=== PATIENT | male | born 1950 | race African-American/Black ===

== ENCOUNTER 2017-11-14 09:32 | Outpatient (CLI) | payer MEDICARE ==
--- NOTE | 2017-11-14 12:44 | CT ---
CHEST CT WITHOUT CONTRAST: Date: 11/14/17 COMPARISON: 10/02/16, 08/09/15. HISTORY: Follow-up lung cancer. Left upper lobe nodule follow-up. Patient has undergone chemotherapy and radia tion therapy in 2009. TECHNIQUE: Noncontrast chest CT is performed in the axial plane. Reformatted images are submitted for interpreta tion. FINDINGS: Limited evaluation of the mediastinum due to lack of IV contrast. Coronary artery calcifications are identified. Atherosclerosis of aorta is noted. Normal heart size. Trachea and central bronchi are patent. 4.0 mm nodule in the lateral right upper lobe. 4.0 mm nodule in the anterior middle lobe. Scar/atelec tasis in the right lower lobe. Persistent consolidation with air bronchograms in the left lung apex. There is intrinsic hyperdensity , unchanged. Area of hyperdensity likely represents calcification of the apical pleura and measures 3 .0 x 2.1 cm. Subpleural lymph node adjacent to the left major fissure is noted, measuring 3.0 mm. Visualized upper solid organs are unremarkable. Stable degenerative changes of the spine. IMPRESSION: No significant interval change. Stable post-treatment changes in the left upper lobe. POS: ALEX
== END 2017-11-14 09:33 | disposition home or self-care (01) ==
LOC: CT 09:32
PROVIDERS: ATTEND Radiology Radiation Oncology
DX: C34.12 Malignant neoplasm of upper lobe, left bronchus or lung (principal); Z92.21 Personal history of antineoplastic chemotherapy
CPT/HCPCS: 71250

== ENCOUNTER 2018-09-03 08:08 | Outpatient (CLI) | payer MEDICARE ==
[2018-09-03] MEDS ORDERED: Iopamidol 370 76% 100 ML VIAL ONE (09:00)
[2018-09-03 09:19] LABS: Estimated GFR-MDRD - POC Greater than 90
--- NOTE | 2018-09-03 11:47 | MRI ---
MRI BRAIN WITH AND WITHOUT CONTRAST: DATE: 09/03/18 HISTORY: 68-year-old male with history of brain metastasis from lung cancer. COMPARISON: 07/20/16. TECHNIQUE: Multiple sequences obtained in axial, sagittal, and coronal planes; pre and post IV injection of gado linium-based contrast agent: 12 mL MultiHance. FINDINGS: Again noted are the right posterior parietal craniotomy changes, deep to which there is a right poste rior parietal region of encephalomalacia and gliosis, with the inferior portion of the lesion close t o the parietooccipital fissure. There is no abnormal nodular enhancement in the region of encephaloma lacia and gliosis. There is no new abnormally enhancing metastatic tumor intracranial mass, either in the intra-axial or extra-axial spaces. Ventricles are normal in size and configuration. No mass effe ct, midline shift, recent hemorrhage, restricted diffusion, or extra-axial fluid collection. Again noted is the multichambered, mixed signal intensity chronic mass expanding the right ethmoid si nus, chronically displacing the right lamina papyracea to the right, encroaching upon, and distorting the right orbit and right nasal cavity. This degree of mass effect upon the right orbit has not sign ificantly changed since a reference sinus CT of 11/05/12 from [facility]. There is multilocula sis thick rim enhancement involving this mass. There is mild to moderate mucosal enhancement of the s phenoid sinus. No invasion of the cavernous sinuses. IMPRESSION: 1. Status post neoplastic tumor resection (presumably metastasis) from right parietal lobe; with enc ephalomalacia and gliosis, unchanged since 07/20/16. 2. No evidence of recurrent or new metastatic lesion intracranially. 3. Very slowly growing, expansile mass centered in the right ethmoid sinus, causing chronic mass eff ect upon the adjacent right orbit, consistent with sinonasal polyposis. SAMANTHA Diop POS: [facility]
--- NOTE | 2018-09-03 15:47 | CT ---
CT OF THE CHEST WITH CONTRAST: 09/03/18 COMPARISON: 10/02/16, 08/09/15, 12/12/13. TECHNIQUE: Multiple contiguous axial images were obtained in CT of the chest with contrast. Coronal reformats we re performed. FINDINGS: There is collapse of the left upper lobe with central high density. This is grossly stable compared t o the prior examination. There is a new right hilar mass measuring 2.9 cm in greatest dimension. There is mucus seen within ob structed bronchi to the right lower lobe. There are areas of air space opacity in the right lower lob e which may represent focal infiltrates or metastatic disease. These are new compared to the prior ex amination. The previously seen scattered tiny areas of nodularity are unchanged but difficult to see in the right lung given the findings in the right hilar region extending into the right lower lobe. T here are also new areas of nodularity in the right middle lobe extending from the hilum with increase d interstitial lung markings in the right middle lobe. The heart is normal in size. No left hilar adenopathy is seen. No enlarged mediastinal lymph nodes ar e present. Degenerative changes are seen in the spine. The chest wall soft tissues are unremarkable. There are s mall hypodensities in the left kidney which are too small to characterize but likely represents cyst s. The other visualized subdiaphragmatic structures are unremarkable. IMPRESSION: There is a new right hilar mass appear to cause obstruction of the bronchi to the right middle and lo wer lobes which result in mucus filled bronchi in the right lower lobe. There are areas of air space opacity in the right lower lobe and increased interstitial markings in the right middle lobe which ar e concerning for spread of malignancy. POS: C
== END 2018-09-03 08:09 | disposition home or self-care (01) ==
LOC: SCSMRI 08:08
PROVIDERS: ATTEND Radiology Radiation Oncology
DX: C34.12 Malignant neoplasm of upper lobe, left bronchus or lung (principal); C79.31 Secondary malignant neoplasm of brain; R91.8 Other nonspecific abnormal finding of lung field; J34.89 Other specified disorders of nose and nasal sinuses; G93.89 Other specified disorders of brain
CPT/HCPCS: 70553; 71260; 82565; Q9967

== ENCOUNTER 2018-09-18 07:00 | Day surgery (SDC) | payer MEDICARE ==
--- NOTE | 2018-09-17 14:12 | HP ---
HISTORY OF PRESENT ILLNESS: A 68-year-old gentleman, who is referred by Dr. Luke Romeo for bronchoscopy. He has known history of metastatic adenocarcinoma diagnosed in 2009 when he was found to have a mass. He underwent a craniotomy and excision, which revealed adenocarcinoma. He has since then received chemoradiation and had been followed exclusively by Oncology. He presented with cough and now a new right lung mass. He said he has lost weight, about 70 pounds, but no fever or chills. In fact, he was still smoking until about 7 months ago. PAST MEDICAL HISTORY: Metastatic lung cancer diagnosed initially in 2009, nasal allergies, chronic sinusitis, right ethmoid mass_, diabetes, hypertension, arthritis, seizures. PAST SURGICAL HISTORY: Appendix, brain tumor removed in 2009, cyst on the scalp. HABITS: Still smoking1 pack a day. Alcohol, none. CHRONIC MEDICATIONS: Include, 1. Lisinopril 20. 2. Atorvastatin 20. 3. Dilantin 100 three times a day. SOCIAL AND FAMILY HISTORY: Unremarkable. He worked for the [employer]. ALLERGIES: NONE. REVIEW OF SYSTEMS: Ten-point negative. PHYSICAL EXAMINATION: GENERAL: He is in no acute distress in the office. He looks cachectic. VITAL SIGNS: Saturations 97%, pulse 80, respiratory rate 18, and blood pressure 110/80. EXTREMITIES: Finger clubbing. CHEST: Decreased breath sounds. No wheezing. CARDIAC: Normal S1 and S2. No gallops. ABDOMEN: Soft. IMAGING STUDIES: His CT scan on 09/03/2018 shows a new right hilar mass causing some obstruction in the right lower lobe area. There is also some airspace disease in the right lower lung, for which he was given some antibiotics. Additionally , the area in the left lung appears to be unchanged. IMPRESSION: New right lung mass, metastatic carcinoma versus new primary; tobacco abuse; seizure disorder; status post craniotomy. PLAN: Outpatient bronchoscopy and biopsy will be performed. Further recommendation after that. Job ID: [id number] [facility]
[2018-09-17 14:18] VITALS: BMI 17.6
[2018-09-18] MEDS ORDERED: Lidocaine 4% PF 5 ML AMP NEB SCH (08:00)
[2018-09-18] MEDS ORDERED: Sodium Chloride 0.9% 1,000 ML IV SCH (08:00)
[2018-09-18] MEDS ORDERED: Lidocaine 1% (PF) 30 ML VIAL ONE (08:19)
[2018-09-18] MEDS ORDERED: Fentanyl 100 MCG/2 ML VIAL ONE (08:19)
[2018-09-18] MEDS ORDERED: Midazolam HCl 2 mg/2 ml Vial ONE (08:19)
[2018-09-18] MEDS ORDERED: Benzocaine 20% Spray 60 ML CAN ONE (08:25)
[2018-09-18] MEDS ORDERED: EPINEPHrine 1 MG/10 ML Abboject SYRINGE ONE ×2 (10:09→12:12)
--- NOTE | 2018-09-18 11:20 | OP ---
DATE OF PROCEDURE: 09/18/2018 PROCEDURE PERFORMED: Bronchoscopy with biopsy. INDICATION: Right lung mass. POSTBRONCHOSCOPY DIAGNOSES: 1. The entire right lung, right upper lobe bronchus, right lower lobe bronchus, bronchus intermedius, and all the segments and subsegments were occluded with nodular friable mucosa, very friable and very bloody. 2. It appears the bronchogenic carcinoma is involving the entire lung. DESCRIPTION OF PROCEDURE: After informed consent, the patient received 4 mL of 4% lidocaine with DuoNeb. During the procedure, he received 1 of Versed and 50 of fentanyl. The flexible B1 Olympus bronchoscope was passed via the nostril. Pharynx, hypopharynx, and vocal cords were visualized, which were unremarkable. Entering the trachea, the reza appeared to be relatively sharp. Right lung inspected initially. Right mainstem bronchus, right lower lobe bronchus, right bronchus intermedius were markedly occluded with extensive friable nodular mucosa. I was able to visualize the right upper lobe segment, but otherwise the basilar segments including the middle lobe and right lower lobe basilar segments were not visualized since they were occluded with extensive nodular friable mucosa. There was blood profusely to touch. The entire area was lavaged with normal saline. Following this, several mL of 1:10,000 epinephrine instilled. Thereafter, multiple biopsies obtained from the right middle lobe orifice, mucosa as well as the right lower lobe basilar segment multiple orifices, nodular friable mucosa. A total of at least 15 mL of 1:10,000 epinephrine instilled to control the bleeding. The left lung was inspected subsequently, which showed surprisingly the left upper lung to be unremarkable. No obvious endobronchial disease was seen. There was some narrowing of the upper lobe segments. Left lobe was unremarkable. The patient otherwise tolerated the procedure well. The washings were sent for cytology. Biopsy was sent for histopathology only. BRIEF DISCHARGE NOTE: The patient tolerated the procedure well. Results will be available to the patient and family. Further recommendation as above. Job ID: [id number]
--- NOTE | 2018-09-22 08:38 | EKG ---
Test Reason : Blood Pressure : / mmHG Vent. Rate : 093 BPM Atrial Rate : 093 BPM P-R Int : 156 ms QRS Dur : 080 ms QT Int : 340 ms P-R-T Axes : 080 076 060 degrees QTc Int : 422 ms Normal sinus rhythm Minimal voltage criteria for LVH, may be normal variant Borderline ECG When compared with ECG of 12-DEC-2013 17:47, No significant change was found Confirmed by DR. Kathya CERVANTES ([id number]) on 09/22/2018 8:37:49 AM Referred By: PAMELA Confirmed By:DR. Kathya CERVANTES
== END 2018-09-18 12:15 | disposition home or self-care (01) ==
LOC: SDC 07:00
PROVIDERS: ATTEND Internal Medicine Pulmonary Disease
PROC: 0BB38ZX Excision of Right Main Bronchus, Via Natural or Artificial Opening Endoscopic, Diagnostic (ICD-10-PCS; principal; 2018-09-18)
DX: C34.91 Malignant neoplasm of unspecified part of right bronchus or lung (principal); I10 Essential (primary) hypertension; E11.9 Type 2 diabetes mellitus without complications; M19.90 Unspecified osteoarthritis, unspecified site; Z87.891 Personal history of nicotine dependence; Z79.899 Other long term (current) drug therapy
CPT/HCPCS: 88112; 88305; 88313; 88341; 88342; 93005; 93010; 94640; 99152; 99153; J0171; J2001; J2250; J3010

== ENCOUNTER 2018-10-02 11:12 | Outpatient (CLI) | payer MEDICARE ==
--- NOTE | 2018-10-02 14:13 | PET ---
Radionucleotide PET scan with CT attenuation correction HISTORY: Right lung cancer. Metastatic disease. Restaging. FINDINGS: Physiologic uptake of radiotracer throughout the enteric system and along each urinary trac t. At the right hilum, a lobular soft tissue density mass shows a maximum SUV of 13.0. A lymph node at t he right suprahilar level shows a maximum SUV of 12.2. A right posterior infrahilar lymph node shows maximum SUV of 6.7. Subcarinal lymph node shows maximum SUV of 3.9. The nodule within the lateral segment of the right middle lobe is now approximately 1.6 cm diameter a nd shows a maximum SUV of 8.2 IMPRESSION: Hypermetabolic right hilar mass and right middle lobe mass with spread to mediastinal lym ph nodes as detailed above..
== END 2018-10-02 11:13 | disposition home or self-care (01) ==
LOC: PET 11:12
PROVIDERS: ATTEND Radiology Radiation Oncology
DX: C34.81 Malignant neoplasm of overlapping sites of right bronchus and lung (principal); R91.8 Other nonspecific abnormal finding of lung field
CPT/HCPCS: 78815; A9552

== ENCOUNTER 2019-03-03 09:20 | Outpatient (CLI) | payer MEDICARE ==
[2019-03-03 09:52] LABS: Estimated GFR-MDRD - POC Greater than 90
--- NOTE | 2019-03-03 11:00 | CT ---
EXAM: CT Chest W Con PROVIDED CLINICAL HISTORY: Lung cancer COMPARISON: CT of 09/03/2018, PET/CT 10/02/2018 FINDINGS: Appearance of the left lung apex is unchanged with respect to multiple prior examinations. Heart, per icardium and great vessels appear stable. Interval reduction in the bulk of the right hilar mass previously described. There is development of postobstructive atelectasis involving the right middle lobe with fluid-filled right middle lobe bronchi demonstrated. The fluid density previously demonstrated within right lower lobe bronchi is no longer apparent. Interval development of multiple new noncalcified nodules involving the right upper lobe and right lo wer lobe. The largest of these are located in the superior segment of the right lower lobe, the largest measuring about 2 cm. Interval development of noncalcified nodule measuring at least 6 mm inv olving the left upper lobe. There is a small amount of right pleural fluid. There is no evidence for thoracic lymph node enlargement. Interval development of several hypodense foci involving the right hepatic lobe, largest of which katharine sures about 1.5 cm. The solid abdominal organs demonstrate an otherwise unremarkable CT appearance. There is no bowel dilatation, inflammatory fat stranding, free fluid or lymph node enlargement appare nt within the abdomen. Conspicuous vascular calcifications are seen. The osseous structures demonstrate no concerning lytic or blastic lesions. IMPRESSION: 1. Interval reduction in the bulk of the right hilar mass. 2. Postobstructive change involving the right middle lobe. 3. Interval development of bilateral pulmonary nodules compatible with metastatic disease. 4. Small right pleural effusion. 5. Development of hypodensities involving the right hepatic lobe compatible with metastatic disease.
[2019-03-03] MEDS ORDERED: Iopamidol 370 76% 100 ML VIAL ONE (16:13)
== END 2019-03-03 09:21 | disposition home or self-care (01) ==
LOC: CT 09:20
PROVIDERS: ATTEND Internal Medicine Medical Oncology
DX: C34.81 Malignant neoplasm of overlapping sites of right bronchus and lung (principal); J90 Pleural effusion, not elsewhere classified; K76.89 Other specified diseases of liver; R91.8 Other nonspecific abnormal finding of lung field
CPT/HCPCS: 71260; 74160; 82565; Q9967

== ENCOUNTER 2019-05-19 07:30 | Inpatient (IN) | payer MEDICARE ==
--- NOTE | 2019-05-19 08:39 | RAD ---
EXAM: CHEST ONE VIEW HISTORY: Productive cough for 3 days. History of lung cancer. Currently on chemotherapy. COMPARISON: CT thorax on 03/03/2019 FINDINGS: The right hilar/infrahilar masslike opacity is again seen with overall similar appearance to the scou t view of the chest on CT thorax on 03/03/2019. The area of opacification in the left lung apex also persists. The scattered pulmonary nodules seen on CT of thorax are not well delineated on this exam. Pulmonary vasculature is within normal limits. No pleural effusion is identified. Remote posterior right-sided rib fractures are again seen. No other interval change. IMPRESSION: 1. Right hilar/infrahilar masslike opacity also seen on prior CT thorax and related to patient's know n neoplastic process. 2. Stable opacity left lung apex.
[2019-05-19 09:30] LABS: ALT (SGPT) 21 U/L (8-55); AST (SGOT) 34 U/L (5-34); Albumin 3.8 g/dL (3.4-4.8); Alkaline Phosphatase 109 U/L (40-110); Anion Gap 19 mmol/L (10-20); BUN (Urea Nitrogen) 26 mg/dL (8.4-25.7); Bilirubin, Total 0.5 mg/dL (0.2-1.2); Calc. Creatinine Clearance 0 mL/min (70-130); Calcium 9.2 mg/dL (7.8-10.44); Carbon Dioxide 17 mmol/L (23-31); Chloride 106 mmol/L (98-107); Estimated GFR-MDRD Greater than 90; Globulin 4.1 g/dL (2.4-3.5); Glucose 98 mg/dL (80-115); Potassium 4.7 mmol/L (3.5-5.1); Protein, Total 7.9 g/dL (5.8-8.1); Sodium 137 mmol/L (136-145)
--- NOTE | 2019-05-19 09:56 | CT ---
CT PULMONARY ANGIOGRAM WITH IV CONTRAST AND 3D POSTPROCESSING: Date: 05/19/2019 HISTORY: Cough. Lung cancer. Patient has been on chemotherapy for 2 weeks. FINDINGS: Comparison made with CT scan of 03/03/2019. There is good contrast opacification of the pulmonary arterial vasculature without filling defects to suggest pulmonary embolism. There are vascular calcifications without evidence of aneurysmal dilatat ion of the thoracic aorta. No pericardial or left pleural effusion is seen. A small right pleural eff usion is again seen. There has been interval development of patchy consolidation in the right lower l obe with probable small area of cavitation. Atelectatic change in the right middle lobe and parenchym al changes in the left upper lobe are stable. There has been interval increase in size of the 15 mm lesion in the right lobe of the liver which cur rently measures 2 cm. There are degenerative changes in the spine. There is a small right pneumothorax which is new since the last exam. The nodular densities in the ri ght lung are stable. IMPRESSION: 1. No CT evidence of pulmonary embolism. Please see above discussion. 2. Small right pneumothorax. 3. New areas of consolidation in the right lower lobe since 03/03/2019. Discussed over the phone with ER physician, Dr. Jesi Rojas, at 0946 hours. CODE CR. POS: MZJenna
[2019-05-19] MEDS ORDERED: Vancomycin HCl 1.25 GM in Sodium Chloride 0.9% 250 ML 250 ML IVPB SCH (10:00)
[2019-05-19 10:26] LABS: Hemoglobin 10.3 g/dL (14.0-18.0); Mean Corpuscular HGB CONC 33.2 g/dL (32.0-36.0); Mean Corpuscular Hemoglobin 31.5 pg (27.0-31.0); Mean Corpuscular Volume 94.9 fL (78.0-98.0); Mean Platelet Volume 9.6 fL (7.4-10.4); Platelet Count 51 thou/uL (130-400); RBC Distribution Width 15.8 % (11.5-14.5); Red Blood Cell (RBC) Count 3.26 mill/uL (4.70-6.10); White Blood Cell (WBC) Count 3.7 thou/uL (4.8-10.8)
[2019-05-19 10:28] LABS: #Lymphocytes 0.2 thou/uL (1.20-3.40); #Monocytes 0.1 thou/uL (0.11-0.59); #Neutrophils 3.3 thou/uL (1.40-6.50); %Eosinophils 0.3 % (0.0-10.0); %Lymphocytes 5.8 % (21.0-51.0); %Monocytes 2.6 % (0.0-10.0); %Neutrophils 91.2 % (42.0-75.0); Platelet Morphology Comment Appears Decreased
[2019-05-19] MEDS ORDERED: Cefepime 2 GM VIAL ONE (10:32)
--- NOTE | 2019-05-19 12:03 | PDOC.FPRHP ---
- History of Present Illness Chief Complaint: Cough History of Present Illness: 68yo male with PMH of squamous cell lung cancer on chemo presents with cough and is admitted for severe sepsis 2/2 pneumonia. He reports 2 day hx productive cough. Denies fever, congestion. Reports decreased PO intake, urine output, dizziness. Reports falling last night after feeling dizzy. Did not hit his head. Waited until the morning to call EMS. Notes he last received chemo with Dr. Coleman last week. Next visit scheduled . Lives at home with . Uses walker sometimes. Does not use services. Patient is poor historian. No family members present. ED Course: Initially tachycardic, tachypneic. Flu swab. Received Vanc, Levaquin, Cefepime, 2L NS - Allergies/Adverse Reactions Allergies Allergy/AdvReac Type Severity Reaction Status Date / Time No Known Allergies Allergy Verified 05/16/19 23:15 - Home Medications Medication Instructions Recorded Confirmed Type Phenytoin Sodium Extended 100 mg PO BID 12/12/13 05/19/19 History [Dilantin] Atorvastatin Calcium [Lipitor] 20 mg PO HS 09/17/18 05/19/19 History Lisinopril 10 mg PO QAM 05/19/19 05/19/19 History - History PMHx: Squamous Cell Lung cancer, HTN, Seizure PSHx: Appendectomy, lung biopsy, craniotomy 2009 FHx: Noncontributory Social: Quit smoking 06/2018. Denies alcohol or drug use. - Review of Systems General: reports: weight/appetite/sleep changes, fatigue. denies: fever/chills Eyes: denies: eye pain, vision changes ENT: reports: nasal congestion, rhinorrhea Respiratory: reports: cough, congestion. denies: shortness of breath Cardiovascular: denies: chest pain, edema Gastrointestinal: reports: diarrhea. denies: nausea, vomiting, abdominal pain Genitourinary: reports: other (decreased urination) Skin: denies: rashes, lesions Neurological: denies: seizure, weakness - Vital signs BP: 114/77 HR: 111 RR: 20 Tmax: 97.8 Pox: 100% on 1L Wt: 59kg - Physical Exam Constitutional: NAD, awake, alert and oriented, well developed HEENT: normocephalic and atraumatic Abdomen: soft, non-tender, bowel sounds present Musculoskeletal: normal structure, normal tone Neurological: no focal deficit Skin: no rash/lesions, good turgor Psychiatric: normal mood and affect, good judgment and insight, intact recent and remote memory, other (Difficult to understand) FMR H&P: Results - Labs Result Diagrams: 05/19/19 09:59 05/19/19 08:59 Lab results: WBC 3.7 thou/uL (4.8-10.8) L 05/19/19 09:59 Hgb 10.3 g/dL (14.0-18.0) L 05/19/19 09:59 Hct 30.9 % (42.0-52.0) L 05/19/19 09:59 MCV 94.9 fL (78.0-98.0) 05/19/19 09:59 Plt Count 51 thou/uL (130-400) L 05/19/19 09:59 Neutrophils % 91.2 % (42.0-75.0) H 05/19/19 09:59 Sodium 137 mmol/L (136-145) 05/19/19 08:59 Potassium 4.7 mmol/L (3.5-5.1) 05/19/19 08:59 Chloride 106 mmol/L (98-107) 05/19/19 08:59 Carbon Dioxide 17 mmol/L (23-31) L 05/19/19 08:59 BUN 26 mg/dL (8.4-25.7) H 05/19/19 08:59 Creatinine 0.82 mg/dL (0.7-1.3) 05/19/19 08:59 Glucose 98 mg/dL (80-115) 05/19/19 08:59 Lactic Acid 2.3 mmol/L (0.5-2.2) H 05/19/19 08:59 Calcium 9.2 mg/dL (7.8-10.44) 05/19/19 08:59 Total Bilirubin 0.5 mg/dL (0.2-1.2) 05/19/19 08:59 AST 34 U/L (5-34) 05/19/19 08:59 ALT 21 U/L (8-55) 05/19/19 08:59 Alkaline Phosphatase 109 U/L (40-110) 05/19/19 08:59 Serum Total Protein 7.9 g/dL (5.8-8.1) 05/19/19 08:59 Albumin 3.8 g/dL (3.4-4.8) 05/19/19 08:59 - Radiology Interpretation CT scan - chest Status: image reviewed by me, report reviewed by me Additional comment: Small right pneumothorax Increased Chest x-ray Status: image reviewed by me, report reviewed by me FMR H&P: A/P - Plan 68 yo M with PMH lung cancer on chemo presents with 2 days of cough, weakness and is admitted for CAP. Severe sepsis 2/2 PNA - Tachypnea, tachycardia, WBC 3.7, Lactic 2.3 on initial presentation. Afebrile. - No travel or sick contacts. Covid not suspected by ED and not tested. - Received Cefepime, Vanc/Zosyn, 2L NS in the ED - Flu negative - CT showed new RLL consolidation - Continue IVF - Continue vanc and cefepime (05/18) Thrombocytopenia - platelet 51, this is not present on prior labs but last to compare in chart from 11/13. - 2/2 sepsis vs malignancy Chronic normocytic anemia - Hgb 10.3, continue to monitor, likely 2/2 chronic disease Dilantin therapy with presumed hx of seizures - difficult to obtain hx from patient - will check dilantin level HTN - Hold home lisinopril today Hx of Lung Cancer - Biopsy [place] [address] Powers showed Squamous cell carcinoma - Hx of metastatic brain cancer- adenocarcinoma, reported primary cancer was lung per prior H&P - will notify [place] of patient's inpatient status Hx DM in chart years ago, patient denies Code Status: FULL DVT ppx: SCDs Diet: CC PCP: [facility] Dispo: admit to medical floor, inpatient. Expected stay >48hrs. Addendum - Attending - Attending Attestation Date/Time: 05/19/192128 I personally evaluated the patient and discussed the management with Dr. Montenegro I agree with the History, Examination, Assessment and Plan documented above with any addition or exceptions noted below- 68 yo male with h/o SCCA of lung stage IV presented with cough and increased SOB for last 2 days. Denies any fever. Mildly increased sputum production. Denies any hemoptysis. PMH/PSH/Meds/ SH reviewed and agree with residents documentation. Afebrile VSS Exam repeated by me and agree with residents findings. CT chest- RLL infiltrate A/ P: 1) Severe sepsis secondary RLL pneumonia- continue current abxn cultures pending. 2 ) SCCA of lung- oncology notified of patients admission, 3) Cachexia/protein calorie malnutrition - plan for nutrition consult and start ensure supplements.
[2019-05-19 13:14] LABS: Lactic Acid 1.8 mmol/L (0.5-2.2)
[2019-05-19] MEDS ORDERED: Acetaminophen 325 MG TAB PO PRN (14:44)
[2019-05-19] MEDS ORDERED: Ondansetron PF 4 MG/2 ML Vial IVP PRN (14:44)
[2019-05-19] MEDS ORDERED: Ondansetron ODT 4 MG TAB PO PRN (14:44)
[2019-05-19 15:00] VITALS: BMI 14.5
[2019-05-19] MEDS ORDERED: Iopamidol 370 76% 100 ML VIAL ONE (15:36)
[2019-05-19] MEDS: Lactated Ringer's 1,000 ML IV SCH (15:48)
[2019-05-19] MEDS: Cefepime 2 GM in Sodium Chloride 0.9% 100 ML IVPB SCH (17:04)
--- NOTE | 2019-05-19 17:38 | CON ---
DATE OF CONSULTATION: REASON FOR CONSULTATION: Squamous cell lung cancer. HISTORY OF PRESENT ILLNESS: Mr. Alexis is a pleasant 68-year-old gentleman with squamous cell lung cancer of the right upper lobe, right lower lobe, and bronchus intermedius. He was diagnosed in August of 2018. He underwent treatment with radiation as he was stage IIA at diagnosis. Unfortunately, in February of 2019, he was diagnosed with progressive disease with new pulmonary nodules and liver masses. He was started on chemotherapy and immunotherapy. He completed cycle 4 of carboplatin, Taxol, and Keytruda on May 10. He was struggling with neutropenia throughout treatment. He has also been significantly anemic with his last hemoglobin of 8.2. Over the last several days, he has been having worsening cough and dizziness, so he presented to the emergency room for evaluation. He underwent a CT angio of the chest, which was negative for pulmonary emboli. There was a small right pneumothorax and a new area of consolidation in the right lower lobe consistent with pneumonia. He was admitted for treatment. He was started on IV fluids and vancomycin and cefepime. His white blood cells on arrival were 3.7 with an ANC of 3.3, his hemoglobin was 10.3, and his platelet count was 51,000. He denies any hemoptysis or blood in his urine or stool. He states he is feeling better since arrival and has no complaints of shortness of breath at this time. PAST MEDICAL HISTORY: 1. Stage IV squamous cell carcinoma of the lung. 2. 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 3. Diabetes mellitus, type 2. 4. Hypertension. 5. Hyperlipidemia. 6. Arthritis. 7. History of seizures. 8. Chronic sinusitis. PAST SURGICAL HISTORY: 1. Appendectomy. 2. Craniotomy with resection of solitary brain met in 2009. 3. Bronchoscopy. ALLERGIES: NO KNOWN DRUG ALLERGIES. HOME MEDICATIONS: 1. Megace. 2. Atorvastatin. 3. Iron. 4. Lisinopril. 5. Dilantin. 6. Tessalon Perles. FAMILY HISTORY: Father had a history of lung cancer. SOCIAL HISTORY: , lives with his spouse. He is a former smoker. Former alcohol use. No illicit drug use. Worked for the [employer] in the past. REVIEW OF SYSTEMS: A 10-point review of systems is negative except for noted in HPI. PHYSICAL EXAMINATION: VITAL SIGNS: Temperature 97.8, pulse is 97, respiratory rate 18, and blood pressure is 128/81, and he is 97% on 1.5 L nasal cannula. GENERAL: This is a frail male, in no acute distress. HEENT: Normocephalic, atraumatic. Pupils are equal and reactive to light. NECK: Supple. CV: Regular rate and rhythm. LUNGS: He has crackles in his right base. ABDOMEN: Soft and nontender. Bowel sounds are positive. EXTREMITIES: There is no clubbing or cyanosis. SKIN: No rash. HEMATOLOGIC: No petechiae or purpura. NEUROLOGIC: Nonfocal. LABORATORY AND DIAGNOSTIC DATA: Current WBCs 3.7, hemoglobin 10.3, hematocrit 30.9, platelet count 51,000, 91% neutrophils, 5.8% lymphocytes, and ANC is 3.3. Sodium 137, potassium 4.7, chloride 106, CO2 of 17, BUN is 26, creatinine 0.82, lactic acid is 1.8, calcium 9.2, bilirubin 0.5, AST 34, ALT is 21, alkaline phosphatase is 109. Troponin is negative. Serum total protein is 7.9, albumin 3.8, globulin 4.1. Radiology per HPI. ASSESSMENT: 1. Right lower lobe pneumonia. 2. Stage IV squamous cell lung cancer. DISCUSSION: The patient is receiving IV fluids and empiric antibiotics. His home medications have been continued. He has struggled with poor appetite in the past. We would get a dietary consult to assist with dietary choices. He has been pancultured and they are currently pending. His chemotherapy has been completed and now will begin maintenance Keytruda in May. We will follow along with his hospital course. Thank you for the consult. Job ID: [id number]
[2019-05-19] MEDS ORDERED: Vancomycin 1 GM in Premix Bag 1 BAG IVPB SCH (21:00)
[2019-05-19] MEDS: Atorvastatin Calcium 20 MG TAB PO SCH (21:18)
[2019-05-20] MEDS: Lactated Ringer's 1,000 ML IV SCH (02:12)
[2019-05-20] MEDS: Cefepime 2 GM in Sodium Chloride 0.9% 100 ML IVPB SCH ×3 (02:13→17:10)
[2019-05-20 06:08] LABS: #Lymphocytes 0.2 thou/uL (1.20-3.40); #Monocytes 0.2 thou/uL (0.11-0.59); #Neutrophils 1.8 thou/uL (1.40-6.50); %Eosinophils 1.9 % (0.0-10.0); %Lymphocytes 8.3 % (21.0-51.0); %Monocytes 6.9 % (0.0-10.0); %Neutrophils 82.9 % (42.0-75.0); Hemoglobin 9.2 g/dL (14.0-18.0); Mean Corpuscular HGB CONC 32.9 g/dL (32.0-36.0); Mean Corpuscular Hemoglobin 31.1 pg (27.0-31.0); Mean Corpuscular Volume 94.7 fL (78.0-98.0); Mean Platelet Volume 10.2 fL (7.4-10.4); Platelet Count 40 thou/uL (130-400); RBC Distribution Width 15.9 % (11.5-14.5); Red Blood Cell (RBC) Count 2.97 mill/uL (4.70-6.10); White Blood Cell (WBC) Count 2.2 thou/uL (4.8-10.8)
[2019-05-20 06:26] LABS: Anion Gap 12 mmol/L (10-20); BUN (Urea Nitrogen) 16 mg/dL (8.4-25.7); Calc. Creatinine Clearance 73 mL/min (70-130); Carbon Dioxide 19 mmol/L (23-31); Chloride 108 mmol/L (98-107); Estimated GFR-MDRD Greater than 90; Glucose 66 mg/dL (80-115); Potassium 3.9 mmol/L (3.5-5.1); Sodium 135 mmol/L (136-145)
--- NOTE | 2019-05-20 06:57 | PDOC.FM ---
- Subjective Subjective: Mr. Alexis was sleeping comfortably in bed. He denies SOB,difficulty breathing , CP. Says he still hasnt had much appetite. - Objective Vital Signs & Weight: Vital Signs (12 hours) Temp Pulse Resp BP Pulse Ox 05/20/19 04:00 98.2 F 94 20 131/83 95 05/19/19 23:58 97.5 F L 102 H 20 135/76 96 Weight Weight 48.58 kg I&O: 05/18/19 05/19/19 05/20/19 06:59 06:59 06:59 Intake Total 387 Balance 387 Result Diagrams: 05/20/19 05:13 05/20/19 05:13 Phys Exam - Physical Examination Constitutional: NAD (cachectic) Respiratory: wheezing present (mild expiratory) Cardiovascular: RRR, no significant murmur Gastrointestinal: soft (thin), non-tender Musculoskeletal: no edema Neurological: non-focal Psychiatric: normal affect Dx/Plan - Plan Plan: 68 yo M with PMH lung cancer on chemo presents with 2 days of cough, weakness and is admitted for CAP. Severe sepsis 2/2 PNA, improving - Tachypnea, tachycardia, WBC 3.7, Lactic 2.3 on initial presentation. Afebrile. - No travel or sick contacts. Covid not suspected by ED and not tested. - Received Cefepime, Vanc/Zosyn, 2L NS in the ED - Flu negative - CT showed new RLL consolidation - Continue vanc and cefepime (05/18). Blood cx pending. Discontinue IVF. Thrombocytopenia, worsening - platelet 51->40 - 2/2 sepsis vs malignancy Chronic normocytic anemia - Hgb 10.3->9.2, continue to monitor, likely 2/2 chronic disease Leukopenia - WBC 2.2, decreased Dilantin therapy with presumed hx of seizures - dilantin level subtherapeutic. Patient reports taking med once daily. Med restarted twice daily as prescribed. Recheck in 5-7 days (~05/24). HTN - Hold home lisinopril today Hx of Lung Cancer on chemo - Oncology saw patient, consult. Appreciate recommendations Hx DM in chart years ago, patient denies Code Status: FULL DVT ppx: SCDs d/t thrombocytopenia Diet: CC PCP: Cristiano Palma Dispo: PT today, increasing PO intake, continue current management Addendum - Attending - Attending Attestation Date/Time: 05/20/19 5930 I personally evaluated the patient and discussed the management with Dr. Montenegro I agree with the History, Examination, Assessment and Plan documented above with any addition or exceptions noted below - 1) Patient feeling better; still having some coughing and feels like he can't cough up the mucus. Afebrile VSS A/ P: 1) Severe sepsis- improved. 2) CAP - continue current abx. Add nebulizer treatment and mucinex. 2) Metastatic SCCA of lung- appreciate oncology assistance. 3) Cachexia- nutrition consult and supplements.
[2019-05-20] MEDS: Lisinopril 10 MG TAB PO SCH (08:31)
[2019-05-20] MEDS ORDERED: guaiFENesin/DM ER PO SCH (10:30)
[2019-05-20] MEDS: Vancomycin 1 GM in Premix Bag 1 BAG IVPB SCH (13:28)
[2019-05-20] MEDS: guaiFENesin/DM ER PO SCH (23:13)
[2019-05-20] MEDS: Atorvastatin Calcium 20 MG TAB PO SCH (23:20)
[2019-05-21] MEDS: Guaifenesin DM 100-10/5 ML UDCUP PO PRN (01:25)
[2019-05-21] MEDS: Cefepime 2 GM in Sodium Chloride 0.9% 100 ML IVPB SCH ×3 (01:25→17:36)
--- NOTE | 2019-05-21 06:57 | PDOC.FM ---
- Subjective Subjective: Mr. Alexis had coughing last night and says he feels the mucus is loosening up. Doesnt have much appetite. Denies difficulty breathing this morning. Reports constipation. - Objective Vital Signs & Weight: Vital Signs (12 hours) Temp Pulse Resp BP BP Pulse Ox 05/21/19 04:00 98.1 F 88 20 153/93 H 93 L 05/20/19 23:45 97.2 F L 127 H 28 H 113/76 100 05/20/19 20:00 98 05/20/19 19:45 97.5 F L 109 H 20 118/75 98 Weight Admit Weight 48.58 kg Weight 48.58 kg I&O: 05/19/19 05/20/19 05/21/19 06:59 06:59 06:59 Intake Total 387 655 Balance 387 655 Result Diagrams: 05/20/19 05:13 05/20/19 05:13 Phys Exam - Physical Examination Constitutional: NAD Respiratory: no wheezing L side clear, R side with mild rhonchi Cardiovascular: RRR, no significant murmur Gastrointestinal: soft, non-tender Musculoskeletal: no edema Neurological: non-focal Psychiatric: normal affect Skin: normal turgor Dx/Plan - Plan Plan: 68 yo M with PMH lung cancer on chemo presents with 2 days of cough, weakness and is admitted for CAP. Severe sepsis 2/2 PNA, improving - Tachypnea, tachycardia, WBC 3.7, Lactic 2.3 on initial presentation. Afebrile. - No travel or sick contacts. Covid not suspected by ED and not tested. Flu negative - Received Cefepime, Vanc/Zosyn, 2L NS in the ED - CT showed new RLL consolidation - Continue vanc and cefepime (05/18). Blood cx pending. Thrombocytopenia, worsening - platelet 51->40 - 2/2 sepsis vs malignancy Chronic normocytic anemia - Hgb 10.3->9.2, continue to monitor, likely 2/2 chronic disease Leukopenia - WBC 2.2, decreased Dilantin therapy with presumed hx of seizures - dilantin level subtherapeutic. Patient reports taking med once daily. Med restarted twice daily as prescribed. Recheck in 5-7 days (~05/24). HTN - Home lisinopril today Hx of Lung Cancer on chemo - Oncology saw patient, consult. Appreciate recommendations Hx DM in chart years ago, patient denies Code Status: FULL DVT ppx: SCDs d/t thrombocytopenia Diet: CC PCP: Cristiano Palma Dispo: PT today, increasing PO intake, continue current management, awaiting blood cultures Addendum - Attending - Attending Attestation Date/Time: 05/21/19 0475 I personally evaluated the patient and discussed the management with Dr. Montenegro I agree with the History, Examination, Assessment and Plan documented above with any addition or exceptions noted below- Patient without complaints. Feeling better. Afebrile VSS. A/P: 1) CAP- continue current abx 2) SCCA of lung - plans as per oncology. 3) Cachexia/Malnutrition - appreciate nutrition recommendations.
[2019-05-21] MEDS: Lisinopril 10 MG TAB PO SCH (08:21)
[2019-05-21] MEDS: guaiFENesin/DM ER PO SCH ×2 (08:22→21:25)
[2019-05-21] MEDS: Vicks VapoRub 50 gm Jar TOP PRN (08:27)
[2019-05-21] MEDS: Polyethylene Glycol 3350 17 GM Packet PO SCH (10:30)
[2019-05-21] MEDS: Vancomycin 1 GM in Premix Bag 1 BAG IVPB SCH (12:41)
--- NOTE | 2019-05-21 13:05 | PQF ---
CLINICAL DOCUMENTATION IMPROVEMENT CLARIFICATION FORM: ICD-10 Updated PLEASE DO AN ADDENDUM TO THE PROGRESS NOTE WITH ANY DOCUMENTATION UPDATES OR ADDITIONS AND CARRY THROUGH TO DC SUMMARY. THANK YOU. Date: 05/21/19 ATTN: DR. LEUNG Please exercise your independent, professional judgment in responding to the clarification form. Clinical indicators are provided on the bottom of this form for your review Please check appropriate box(s): [ x] Protein Calorie Malnutrition: [ ] Mild [ ] Moderate [ ] Severe [ ] Other Malnutrition (please specify) __ [ ] Underweight without malnutrition [ x ] Cachexia [ ] Other diagnosis [ ] Unable to determine In addition, please specify: Present on Admission (POA): [ x] Yes [ ] No [ ] Unable to determine CLINICAL INDICATORS - SIGNS / SYMPTOMS / LABS / RESULTS AND LOCATION IN MR RD ASSESSMENT 05/19: "11% WEIGHT LOSS" "SEVERE ORBITAL FAT LOSS, SEVERE CLAVICLE WASTING, PT WITH SQUARING OF SHOULDERS AND THINNING OF HAIR." BMI 14.5 RISKS: LUNG CA (ER NOTE) SEPSIS (H&P) PNEUMONIA (H&P) TREATMENT: DIETARY CONSULT 05/19 NUTRITIONAL SUPPLEMENTS MEGACE @ HOME (PER RD NOTE 05/19) Moderate Malnutrition (in acute illness) Energy Intake: <75% of estimated energy requirement for > 7 days Weight Loss: 1-2%/1 week; 5%/ 1 month; 7.5%/3 months Other: mild body fat loss; mild muscle mass loss; mild fluid accumulation; Severe Malnutrition (in acute illness) Energy Intake: < 50% of estimated energy requirement for > 5 days Weight Loss: >1-2%/1 week; >5%/1 month; >7.5%/3 months [employer] ViewerOther: moderate body fat loss; moderate muscle mass loss; moderate- severe fluid accumulation; 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 Moderate Malnutrition (in chronic illness) Energy Intake: <75% of estimated energy requirement for >1 month Weight Loss: 5%/1 month; 7.5%/3 months; 10%/6 months; 20%/1 year Other: mild body fat loss; mild muscle mass loss; mild fluid accumulation Severe Malnutrition (in chronic illness) Energy Intake: <75% of estimated energy requirement for >1 month Weight Loss: >5%/1 month; >7.5%/3 months; >10%/6 months; >20%/1 year Other: severe body fat loss; severe muscle mass loss; severe fluid accumulation ; 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 All Rights Reserved PAT [email or web address] [facility]
--- NOTE | 2019-05-21 15:12 | EKG ---
Test Reason : ER Blood Pressure : / mmHG Vent. Rate : 116 BPM Atrial Rate : 116 BPM P-R Int : 146 ms QRS Dur : 070 ms QT Int : 304 ms P-R-T Axes : 086 081 090 degrees QTc Int : 422 ms Sinus tachycardia Otherwise normal ECG Confirmed by WILLIE POLANCO DO ([id number]), writer editor LAILA MOTLEY ([id number]) on 05/21/2019 3:11:56 PM Referred By: EMS Confirmed By:WILLIE POLANCO DO
[2019-05-21] MEDS: Lactated Ringer's 1,000 ML IV SCH (16:09)
[2019-05-21] MEDS: Atorvastatin Calcium 20 MG TAB PO SCH (21:26)
[2019-05-22] MEDS: Cefepime 2 GM in Sodium Chloride 0.9% 100 ML IVPB SCH ×2 (01:47→09:06)
--- NOTE | 2019-05-22 06:50 | PDOC.FM ---
- Subjective Subjective: Mr. Alexis is feeling good this morning. Denies cough, difficulty breathing, fever. Says the reason he had difficulty with PT was dizziness. He thinks this is improving and plans to work more with PT today. Would be interested in swingbed for further recovery prior to home. - Objective Vital Signs & Weight: Vital Signs (12 hours) Temp Pulse Resp BP Pulse Ox 05/21/19 23:39 97.9 F 96 18 112/68 100 05/21/19 20:00 97.9 F 103 H 16 109/64 99 Weight Admit Weight 48.58 kg Weight 48.58 kg I&O: 05/20/19 05/21/19 05/22/19 06:59 06:59 06:59 Intake Total 387 655 700 Balance 387 655 700 Result Diagrams: 05/22/19 08:16 05/22/19 08:16 Phys Exam - Physical Examination Constitutional: NAD (cachectic, temporal fat loss) Respiratory: no wheezing mild R sided course rhonchi. Left side clear. Cardiovascular: RRR, no significant murmur Gastrointestinal: soft (thin) Neurological: non-focal Psychiatric: normal affect Skin: normal turgor Dx/Plan - Plan Plan: 68 yo M with PMH lung cancer on chemo presents with 2 days of cough, weakness and is admitted for CAP. Severe sepsis 2/2 PNA, improving - Tachypnea, tachycardia, WBC 3.7, Lactic 2.3 on initial presentation. Afebrile. - No travel or sick contacts. Covid not suspected by ED and not tested. Flu negative - CT showed new RLL consolidation - Continue vanc and cefepime (05/18), plan to transition to PO abx today. Blood cx negative - IVF restarted yesterday afternoon, patient has poor PO intake overall but is at baseline. Will continue to monitor fluid status and adjust appropriately Physical deconditioning - patient very weak with minimal mobility since admission. - patient reports only using walker for short time at home prior to admission - patient would benefit from further rehabilitation prior to return home Thrombocytopenia - continue to trend platelets - 2/2 sepsis vs malignancy Chronic normocytic anemia - Hgb 10.3->9.2-?8, continue to monitor, likely 2/2 chronic disease Leukopenia - WBC 2.2 initirally, decreased Dilantin therapy with presumed hx of seizures - dilantin level subtherapeutic. Patient reports taking med once daily. Med restarted twice daily as prescribed. Recheck in 5-7 days (~05/24). HTN - Home lisinopril Hx of Lung Cancer on chemo - Oncology saw patient, consult. Appreciate recommendations Hx DM in chart years ago, patient denies Code Status: FULL DVT ppx: SCDs d/t thrombocytopenia Diet: CC PCP: Cristiano Palma Dispo: PT today, increasing PO intake, transition to PO abx, case management working on swingbed Addendum - Attending - Attending Attestation Date/Time: 05/22/19 1239 I personally evaluated the patient and discussed the management with Dr. Montenegro I agree with the History, Examination, Assessment and Plan documented above with any addition or exceptions noted below - Patient without complaints. States SOB better. worked with PT today. Afebrile VSS. A/P: 1) CAP - improving. Continue current meds. 2) Lung cancer - plans as per oncology. 3) Deconditioning - working on arrangements for SNF placement.
[2019-05-22 08:27] LABS: #Eosinphils 0.1 thou/uL (0.0-0.7); #Lymphocytes 0.3 thou/uL (1.20-3.40); #Monocytes 0.2 thou/uL (0.11-0.59); #Neutrophils 1.1 thou/uL (1.40-6.50); %Eosinophils 5.3 % (0.0-10.0); %Lymphocytes 19.8 % (21.0-51.0); %Monocytes 10.7 % (0.0-10.0); %Neutrophils 64.2 % (42.0-75.0); Hemoglobin 8.4 g/dL (14.0-18.0); Mean Corpuscular Hemoglobin 31.6 pg (27.0-31.0); Mean Corpuscular Volume 93.1 fL (78.0-98.0); Mean Platelet Volume 9.6 fL (7.4-10.4); Platelet Count 46 thou/uL (130-400); RBC Distribution Width 15.8 % (11.5-14.5); Red Blood Cell (RBC) Count 2.66 mill/uL (4.70-6.10); White Blood Cell (WBC) Count 1.6 thou/uL (4.8-10.8)
[2019-05-22] MEDS ORDERED: Bisacodyl 5 MG TAB PO PRN (08:38)
[2019-05-22 08:46] LABS: Anion Gap 10 mmol/L (10-20); BUN (Urea Nitrogen) 14 mg/dL (8.4-25.7); Calc. Creatinine Clearance 73 mL/min (70-130); Calcium 8.9 mg/dL (7.8-10.44); Carbon Dioxide 26 mmol/L (23-31); Chloride 104 mmol/L (98-107); Estimated GFR-MDRD Greater than 90; Glucose 100 mg/dL (80-115); Potassium 3.2 mmol/L (3.5-5.1); Sodium 137 mmol/L (136-145)
[2019-05-22] MEDS: guaiFENesin/DM ER PO SCH ×2 (09:05→21:14)
[2019-05-22] MEDS: Polyethylene Glycol 3350 17 GM Packet PO SCH (09:07)
[2019-05-22] MEDS: Guaifenesin DM 100-10/5 ML UDCUP PO PRN (09:10)
[2019-05-22] MEDS: Lisinopril 10 MG TAB PO SCH (09:50)
[2019-05-22] MEDS: Lactated Ringer's 1,000 ML IV SCH ×2 (10:15→16:56)
[2019-05-22] MEDS: Cefdinir 125 MG/5 ML Oral Suspension PO SCH (21:07)
[2019-05-22] MEDS: Atorvastatin Calcium 20 MG TAB PO SCH (21:07)
[2019-05-22] MEDS: Vicks VapoRub 50 gm Jar TOP PRN (21:24)
[2019-05-23] MEDS: Lactated Ringer's 1,000 ML IV SCH ×4 (03:05→23:57)
--- NOTE | 2019-05-23 06:38 | PDOC.FM ---
- Subjective Subjective: Mr. Alexis is sitting up in bed and feeling well today. Denies any difficulty breathing and appetite continues to improve. He worked with PT well yesterday. He is ready to go to swing bed. - Objective Vital Signs & Weight: Vital Signs (12 hours) Temp Pulse Resp BP Pulse Ox 05/23/19 03:53 97.9 F 74 18 117/69 98 05/23/19 00:42 98.9 F 93 18 110/67 95 05/22/19 20:12 98.7 F 94 18 105/65 94 L 05/22/19 20:00 94 L Weight Admit Weight 48.58 kg Weight 48.58 kg I&O: 05/21/19 05/22/19 05/23/19 06:59 06:59 06:59 Intake Total 747 374 6899 Balance 380 637 3439 Result Diagrams: 05/22/19 08:16 05/22/19 08:16 Phys Exam - Physical Examination Constitutional: NAD (cachexia) L lung clear. R lung mild rhonchi Cardiovascular: RRR, no significant murmur Gastrointestinal: soft (thin) Musculoskeletal: no edema Neurological: non-focal Psychiatric: normal affect Dx/Plan - Plan Plan: 68 yo M with PMH lung cancer on chemo presents with 2 days of cough, weakness and is admitted for CAP. Severe sepsis 2/2 PNA, improved - Tachypnea, tachycardia, WBC 3.7, Lactic 2.3 on initial presentation. Afebrile. - No travel or sick contacts. Covid not suspected by ED and not tested. Flu negative - CT showed new RLL consolidation - Continue vanc and cefepime (), Blood cx negative. Cefdinir PO to complete 7 day course. Physical deconditioning - patient very weak with minimal mobility since admission. - patient reports only using walker for short time at home prior to admission - patient would benefit from further rehabilitation prior to return home - PO intake at baseline per patient Thrombocytopenia - continue to trend - 2/2 sepsis vs malignancy Chronic normocytic anemia - Hgb 10.3->9.2-?8, continue to monitor, likely 2/2 chronic disease Leukopenia - WBC 2.2 initirally, decreased Dilantin therapy with presumed hx of seizures - dilantin level subtherapeutic. Patient reports taking med once daily. Med restarted twice daily as prescribed. Recheck in 5-7 days (~05/24). HTN - Home lisinopril held for now Hx of Lung Cancer on chemo - Oncology saw patient, consult. Appreciate recommendations Hx DM in chart years ago, patient denies Code Status: FULL DVT ppx: SCDs d/t thrombocytopenia Diet: CC PCP: Cristiano Palma Dispo: Plan for discharge to swing bed today. Addendum - Attending - Attending Attestation Date/Time: 05/23/19 1230 I personally evaluated the patient and discussed the management with Dr. Montenegro I agree with the History, Examination, Assessment and Plan documented above with any addition or exceptions noted below - Patient without complaints. Denies any SOB. Mild cough. Afebrile VSS. A/P: 1) Severe sepsis- resolved. 2) CAP - transtition to po abx. 3) Hypotension- resolved. stable for transfer. 4) Deconditioning- plan for swing bed.
[2019-05-23] MEDS: guaiFENesin/DM ER PO SCH ×2 (09:07→20:48)
[2019-05-23] MEDS: Polyethylene Glycol 3350 17 GM Packet PO SCH (09:07)
[2019-05-23] MEDS: Cefdinir 125 MG/5 ML Oral Suspension PO SCH ×2 (09:07→20:48)
[2019-05-23] MEDS: Guaifenesin DM 100-10/5 ML UDCUP PO PRN ×2 (09:07→20:49)
[2019-05-23] MEDS: Atorvastatin Calcium 20 MG TAB PO SCH (20:49)
--- NOTE | 2019-05-24 06:57 | PDOC.FM ---
- Subjective Subjective: Mr. Alexis was sitting up in bed feeling well this morning. Reports intermittent cough. Reports increased appetite. Ready to go to swingbed. - Objective Vital Signs & Weight: Vital Signs (12 hours) Temp Pulse Resp BP BP Pulse Ox 05/24/19 04:00 97.8 F 86 18 128/77 98 05/24/19 00:00 97.9 F 82 18 120/70 98 05/23/19 20:00 98.5 F 85 18 113/72 98 Weight Admit Weight 48.58 kg Weight 48.58 kg I&O: 05/22/19 05/23/19 05/24/19 06:59 06:59 06:59 Intake Total 700 1072 2160 Balance 700 1072 2160 Result Diagrams: 05/22/19 08:16 05/22/19 08:16 Phys Exam - Physical Examination Constitutional: NAD L lung clear. R lung mild crackles Cardiovascular: RRR Gastrointestinal: soft (thin) Musculoskeletal: no edema Neurological: non-focal Dx/Plan - Plan Plan: 68 yo M with PMH lung cancer on chemo presents with 2 days of cough, weakness and is admitted for CAP. Severe sepsis 2/2 PNA, improved - Tachypnea, tachycardia, WBC 3.7, Lactic 2.3 on initial presentation. Afebrile. - No travel or sick contacts. Covid not suspected by ED and not tested. Flu negative - CT showed new RLL consolidation - Vanc and cefepime (), Blood cx negative. Cefdinir PO to complete 7 day course. Physical deconditioning - patient very weak with minimal mobility since admission. - patient reports only using walker for short time at home prior to admission - patient would benefit from further rehabilitation prior to return home - PO intake at baseline per patient Thrombocytopenia - continue to trend - 2/2 sepsis vs malignancy Chronic normocytic anemia - Hgb 10.3->9.2-?8, continue to monitor, likely 2/2 chronic disease Leukopenia - WBC 2.2 initirally, decreased Dilantin therapy with presumed hx of seizures - dilantin level subtherapeutic. Patient reports taking med once daily. Med restarted twice daily as prescribed. Recheck in 5-7 days (~05/24). HTN - Home lisinopril held for now Hx of Lung Cancer on chemo - Oncology saw patient, consult. Appreciate recommendations Hx DM in chart years ago, patient denies Code Status: FULL DVT ppx: SCDs d/t thrombocytopenia Diet: CC PCP: Cristiano Palma Dispo: Plan for discharge to swing bed today. Addendum - Attending - Attending Attestation Date/Time: 05/24/19 1111 I personally evaluated the patient and discussed the management with Dr. Montenegro I agree with the History, Examination, Assessment and Plan documented above with any addition or exceptions noted below - Patient without complaints. SOB improved with neb. Afebrile VSS. A/P: 1) Metastatic lung cancer - finished acute chemotherapy and starts maintenance in May. 2) CAP- Cefdanir day #6; plan to complete 7 day course. 3) Deconditioning - continue PT; plan to transfer to swing bed in [place].
[2019-05-24] MEDS: Guaifenesin DM 100-10/5 ML UDCUP PO PRN (08:37)
[2019-05-24] MEDS: Cefdinir 125 MG/5 ML Oral Suspension PO SCH (08:37)
[2019-05-24] MEDS: guaiFENesin/DM ER PO SCH (08:38)
[2019-05-24] MEDS: Polyethylene Glycol 3350 17 GM Packet PO SCH (08:48)
[2019-05-24 11:36] VITALS: BP 105/72; TEMP 98.2
== END 2019-05-24 13:04 | DRG 871 ==
LOC: ERS 07:30 → T4-B 14:27
PROVIDERS: ADMIT Family Medicine; ATTEND Family Medicine
DX: A41.9 Sepsis, unspecified organism (principal); J18.9 Pneumonia, unspecified organism; R64 Cachexia; Z68.1 Body mass index [BMI] 19.9 or less, adult; J93.9 Pneumothorax, unspecified; C34.12 Malignant neoplasm of upper lobe, left bronchus or lung; E46 Unspecified protein-calorie malnutrition; R65.20 Severe sepsis without septic shock; D69.6 Thrombocytopenia, unspecified; I10 Essential (primary) hypertension; E78.5 Hyperlipidemia, unspecified; M19.90 Unspecified osteoarthritis, unspecified site; E11.9 Type 2 diabetes mellitus without complications; G40.909 Epilepsy, unspecified, not intractable, without status epilepticus; J32.9 Chronic sinusitis, unspecified; D70.1 Agranulocytosis secondary to cancer chemotherapy; D63.8 Anemia in other chronic diseases classified elsewhere; T45.1X5A Adverse effect of antineoplastic and immunosuppressive drugs, initial encounter; K59.00 Constipation, unspecified; Z79.899 Other long term (current) drug therapy; Z90.49 Acquired absence of other specified parts of digestive tract; Z85.841 Personal history of malignant neoplasm of brain; Z87.891 Personal history of nicotine dependence; Z92.3 Personal history of irradiation
CPT/HCPCS: 36415; 36416; 71045; 71275; 80048; 80053; 80185; 83605; 84145; 84484; 85025; 87040; 87804; 93005; 94640; 96361; 96365; 96366; 96367; J0692; J1956; J3370; J3490; J7050; J7620; Q9967